=== PATIENT | male | born 1960 ===

== ENCOUNTER 2023-02-14 13:26 | Outpatient (OUT) | payer OTHER, SELFPAY ==
--- NOTE | 2023-02-14 | XR_ITS ---
[place] [address] Patient Name: ALICE IBRAHIM MRN: [id number] date: 1960 Sex: M Assigned Patient Location: [facility] Current Patient Location: Accession/Order Number: [id number] Exam Date: 02/14/2023 14:00 Report Date: 02/15/2023 00:52 At the request of: LOPEZ MONTEMAYOR Procedure: XR foot RT min 3V PROCEDURE: XR foot RT min 3V HISTORY: RIGHT FOOT PAIN , chronic; plantar heel pain, dorsal midfoot pain COMPARISON: None. 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 Mild degenerative enthesopathic spurring of the calcaneus. No fracture, dislocation, bone lesion. No significant flattening of the plantar arch. SOFT TISSUES:No visible soft tissue swelling. EFFUSION:None visible. OTHER: Negative. XR/XR foot RT min 3V IMPRESSION: 1. Mild degenerative changes. Electronically authenticated by: VICKIE PACE Date: 02/15/2023 00:52
== END 2023-02-14 13:27 | disposition home or self-care (01) ==
LOC: RAD 13:27
PROVIDERS: Visit Provider Podiatrist Foot & Ankle Surgery
DX: M79.671 Pain in right foot (principal)
CPT/HCPCS: 73630